=== PATIENT | female | born 1965 | race Caucasian/White ===

== ENCOUNTER 2018-07-24 06:17 | Day surgery (SDC) | payer OTHER, MEDICAID ==
[2018-07-24] MEDS ORDERED: EPHEDrine SULFATE 50 MG/5 ML SYG IV (09:00)
[2018-07-24] MEDS ORDERED: ALBUTEROL 0.083% (NEB) 2.5 MG/3 ML AMP HHN (09:00)
[2018-07-24] MEDS ORDERED: OXYCODONE/ACETAMINOPHEN (5/325) TAB PO ×2 (09:00)
[2018-07-24] MEDS ORDERED: IPRATROPIUM (NEB) 0.5 MG/2.5 ML AMP HHN (09:00)
[2018-07-24] MEDS ORDERED: MIDAZOLAM 1 MG/ML 2 ML INJ IV (09:00)
[2018-07-24] MEDS ORDERED: TRIMETHOBENZAMIDE 100 MG/ML VIAL IM (09:00)
[2018-07-24] MEDS ORDERED: LABETALOL HCL 20MG INJ IV (09:00)
[2018-07-24] MEDS ORDERED: hydrALAzine 20 MG INJ IV (09:00)
[2018-07-24] MEDS ORDERED: MEPERIDINE 25 MG INJ IV (09:00)
[2018-07-24] MEDS ORDERED: DIPHENHYDRAMINE 50 MG INJ IV (09:00)
[2018-07-24] MEDS ORDERED: HYDROmorphONE 1 MG/5 ML IV SYRINGE IV ×3 (09:00)
[2018-07-24] MEDS ORDERED: FENTAnyl 50 MCG/ML VIAL IV ×2 (09:00)
[2018-07-24] MEDS ORDERED: GLYCOPYRROLATE 0.4 MG INJ (09:01)
[2018-07-24] MEDS ORDERED: ROCURONIUM 50 MG INJ (09:01)
[2018-07-24] MEDS ORDERED: PROPOFOL 20 ML (09:01)
[2018-07-24] MEDS ORDERED: CEFAZOLIN 1 GM INJ (09:01)
[2018-07-24] MEDS ORDERED: MIDAZOLAM 1 MG/ML 2 ML INJ (09:02)
[2018-07-24] MEDS ORDERED: FENTAnyl 50 MCG/ML VIAL (09:02)
[2018-07-24] MEDS ORDERED: ONDANSETRON 4 MG INJ (09:03)
[2018-07-24] MEDS ORDERED: DEXAMETHASONE 4 MG/ML 5 ML INJ (09:03)
[2018-07-24] MEDS: ONDANSETRON 4 MG INJ IV (09:43)
[2018-07-24] MEDS: FENTAnyl 50 MCG/ML VIAL IV (09:43)
[2018-07-24] MEDS ORDERED: ACETAMINOPHEN 325 MG TAB PO (10:30)
== END 2018-07-24 11:10 | disposition home or self-care (01) ==
LOC: SDS 06:17
DX: N85.00 Endometrial hyperplasia, unspecified (principal); I45.10 Unspecified right bundle-branch block
CPT/HCPCS: 58558; 84702; 84703; 86850; 86900; 86901; 88305